=== PATIENT | female | born 1950 | race Caucasian/White ===

== ENCOUNTER 2016-10-30 12:00 | Inpatient (IN) | payer OTHER ==
[~2016-10-30] VITALS: Wt 73.0 kg
--- NOTE | 2016-10-30 15:11 | ERA ---
ER Documentation Chief Complaint Date/Time DATE: 10/30/16 TIME: 15:11 Chief Complaint CHEST PAIN HPI The patient is a 66-year-old female, presenting to the ER because of left-sided chest pain intermittently for the last 3 days, radiating down to the right arm today. She was seen at the clinic was sent her to the ER. She saw a pretzel cooker a few months ago and had a positive treadmill test according to her. The chest pain is 5/10, no aggravating or relieving factor. She did take a baby aspirin 81 mg this morning. She denies fever, chills, neck pain, chest pain with exertion of vomiting or diaphoresis, abdominal pain, vomiting, dysuria , diarrhea. She does not smoke nor drink Past medical history: Hypertension, gout, dyslipidemia Past surgical history: Cholecystectomy ROS All systems reviewed and are negative except as per history of present illness. Medications Home Meds Reported Medications Pantoprazole* (Pantoprazole*) 40 Mg Tablet.dr, 40 MG PO AC BREAKFAST, TAB 10/30/16 Aspirin* (Aspirin* EC) 81 Mg Tablet.dr, 81 MG PO DAILY, TAB 10/30/16 Simvastatin* (Zocor*) 40 Mg Tablet, 40 MG PO QHS, #30 TAB 10/30/16 Atenolol* (Atenolol*) 25 Mg Tablet, 12.5 MG PO DAILY, #30 TAB 10/30/16 Allopurinol* (Allopurinol*) 300 Mg Tablet, 300 MG PO BID, TAB 10/30/16 Allergies Allergies: Coded Allergies: No Known Allergy (Unverified , 10/30/16) Physical Exam Vitals Vital Signs Date Time Temp Pulse Resp B/P Pulse Ox O2 Delivery O2 Flow Rate FiO2 10/30/16 16:31 66 17 167/64 100 Nasal Cannula 2.0 10/30/16 15:15 Nasal Cannula 2 10/30/16 12:11 97.7 70 20 145/90 99 Physical Exam Const: No acute distress. Head: Atraumatic. Eyes: Normal Conjunctiva. ENT: Normal External Ears, Nose and Mouth. Neck: Full range of motion. No meningismus. Resp: Clear to auscultation bilaterally. Cardio: Regular rate and rhythm. Abd: Soft, non distended, normal bowel sounds, non tender. Skin: No petechiae or rashes. Back: No midline or flank tenderness. Ext: No cyanosis, or edema. Neur: Awake and alert. No focal deficit Psych: Normal Mood and Affect. Result Diagram: 10/30/16 1540 10/30/16 1540 Results 24 hrs Laboratory Tests Test 10/30/16 15:40 White Blood Count 9.510^3/ul Red Blood Count 4.4310^6/ul Hemoglobin 12.7g/dl Hematocrit 38.1% Mean Corpuscular Volume 86.0fl Mean Corpuscular Hemoglobin 28.7pg Mean Corpuscular Hemoglobin Concent 33.3g/dl Red Cell Distribution Width 14.1% Platelet Count 89170^3/UL Mean Platelet Volume 9.7fl Neutrophils % 54.8% Lymphocytes % 35.3% Monocytes % 6.6% Eosinophils % 1.8% Basophils % 1.1% Nucleated Red Blood Cells % 0.0/100WBC Neutrophils # 5.210^3/ul Lymphocytes # 3.310^3/ul Monocytes # 0.610^3/ul Eosinophils # 0.210^3/ul Basophils # 0.110^3/ul Nucleated Red Blood Cells # 0.010^3/ul Prothrombin Time 13.0Sec Prothrombin Time Ratio 1.0 INR International Normalized Ratio 0.98 Activated Partial Thromboplast Time 28.0Sec Sodium Level 139mmol/L Potassium Level 4.6mmol/L Chloride Level 107mmol/L Carbon Dioxide Level 25mmol/L Anion Gap 12 Blood Urea Nitrogen 35mg/dl Creatinine 1.10mg/dl Glucose Level 95mg/dl Calcium Level 9.4mg/dl Troponin I < 0.012ng/ml Current Medications Medications (Trade) Dose Ordered Sig/Cole Route PRN Reason Start Time Stop Time Status Last Admin Dose Admin Aspirin (Aspirin) 243 mg ONCE STAT PO 10/30/16 15:17 10/30/16 15:19 DC 10/30/16 15:44 Nitroglycerin 1 inch 1 inch ONCE STAT TD 10/30/16 15:17 10/30/16 15:19 DC 10/30/16 15:44 Sodium Chloride (NS) 500 ml @ 500 mls/hr Q1H ONCE IV 10/30/16 17:00 10/30/16 17:59 Procedures/[place] [id number] Radiology Main Line: [phone] DIAGNOSTIC IMAGING REPORT Patient: NOREEN TORRES : 1950 Age: 66 Sex: F MR #: [id number] DOS: 10/30/16 1510 Ordering MD: EDITH HEDRICK MD Location: E/R Room/Bed: PROCEDURE: XR Chest. CLINICAL INDICATION: Chest pain TECHNIQUE: Chest AP portable. COMPARISON: No comparison available. FINDINGS: The mediastinal structures are unremarkable. The heart is normal in size and configuration. The pulmonary vascularity is normal. The lung moeller are unremarkable. No consolidation is identified. The pleural spaces are unremarkable. The axial skeleton is unremarkable. IMPRESSION: No active intrathoracic disease. RPTAT: HGDB .Arvind Ghosh MD, Date Time Electronically viewed and signed by .Arvind Ghosh MD, MD on 10/30/2016 15:38 .B/ CC: EDITH HEDRICK MD EKG: Read by emergency physician Rate/Rhythm: Normal Sinus Rhythm 70 beats/min QRS, ST, T-waves: No ST elevation, no T inversion, low voltage Impression: Abnormal EKG MEDICAL MAKING DECISION: The patient is a 66-year-old female with multiple cardiac risk factors, presenting with acute chest pain that is concerning for ACS and acute dehydration. She was treated with 3 baby aspirin and 1 inch of nitroglycerin ointment to the chest wall and normal saline 500 mL IV for acute dehydration with good response The differential diagnoses considered include but are not limited to acute coronary syndrome, acute myocardial infarction, pericarditis, pulmonary embolism , aortic dissection, pneumonia, pleural effusion, pneumothorax, GERD, chest wall pain. Departure Diagnosis: Primary Impression: Chest pain Additional Impression: Dehydration Condition: Stable Comments I discussed the findings with the patient. I discussed the patient with the on- call hospitalist Dr. Lima at 4:50 PM who was made aware of the lab, the treatment, the patient condition. The patient is admitted to telemetry EDITH HEDRICK MD Oct 30, 2016 15:11
[2016-10-30] MEDS ORDERED: ASPIRIN 81 MG TAB PO STA (15:17)
[2016-10-30] MEDS ORDERED: NITROGLYCERIN 2% 1 GM OINT PKT TD STA (15:17)
--- NOTE | 2016-10-30 15:39 | RADRPT ---
PROCEDURE: XR Chest. CLINICAL INDICATION: Chest pain TECHNIQUE: Chest AP portable. COMPARISON: No comparison available. FINDINGS: The mediastinal structures are unremarkable. The heart is normal in size and configuration. The pu lmonary vascularity is normal. The lung moeller are unremarkable. No consolidation is identified. The pleural spaces are unremarkable. The axial skeleton is unremarkable. IMPRESSION: No active intrathoracic disease. RPTAT: HGDB .Arvind Ghosh MD, MD Date Time Electronically viewed and signed by .Arvind Ghosh MD, on 10/30/2016 15:38 .B/
[2016-10-30 15:44] LABS: ADD SCAN DIFF NO
[2016-10-30 15:46] LABS: BASOPHIL # 0.1 10^3/ul (0.0-0.1); BASOPHILS % 1.1 % (0.0-2.0); EOSINOPHILS # 0.2 10^3/ul (0.0-0.5); EOSINOPHILS % 1.8 % (0.0-7.0); HEMATOCRIT 38.1 % (37.0-47.0); HEMOGLOBIN 12.7 g/dl (12.0-16.0); LYMPHOCYTES # 3.3 10^3/ul (0.8-2.9); LYMPHOCYTES % 35.3 % (15.0-51.0); MEAN CORPUSCULAR HEMOGLOBIN 28.7 pg (29.0-33.0); MEAN CORPUSCULAR HGB CONC 33.3 g/dl (32.0-37.0); MEAN PLATELET VOLUME 9.7 fl (7.4-10.4); MONOCYTE # 0.6 10^3/ul (0.3-0.9); MONOCYTES % 6.6 % (0.0-11.0); NEUTROPHIL # 5.2 10^3/ul (1.6-7.5); NEUTROPHILS % 54.8 % (39.0-77.0); PLATELET COUNT 250 10^3/UL (140-415); RED BLOOD COUNT 4.43 10^6/ul (4.20-5.40); RED CELL DISTRIBUTION WIDTH 14.1 % (11.5-14.5); WHITE BLOOD COUNT 9.5 10^3/ul (4.8-10.8)
[2016-10-30] MEDS ORDERED: ALLO300T2 PO (15:59)
[2016-10-30] MEDS ORDERED: ATEN-51 PO (16:00)
[2016-10-30] MEDS ORDERED: SIMV40TA2 PO (16:00)
[2016-10-30] MEDS ORDERED: ASPI-664 PO (16:01)
[2016-10-30 16:02] LABS: INR 0.98
[2016-10-30] MEDS ORDERED: PANT40TA4 PO (16:02)
[2016-10-30 16:04] LABS: ANION GAP 12 (8-16); BLOOD UREA NITROGEN 35 mg/dl (7-20); CALCIUM 9.4 mg/dl (8.4-10.2); CARBON DIOXIDE 25 mmol/L (21-31); CHLORIDE 107 mmol/L (97-110); GLUCOSE 95 mg/dl (70-220); POTASSIUM 4.6 mmol/L (3.5-5.1); SODIUM 139 mmol/L (135-144)
[2016-10-30 16:17] LABS: TROPONIN-I < 0.012 ng/ml (0.00-0.12)
[2016-10-30] MEDS ORDERED: SOD CHLORIDE 0.9% 500 ML IV ONE (17:00)
[2016-10-30] MEDS ORDERED: NITROGLYCERIN (SL) 0.4 MG TAB SL PRN (19:30)
[2016-10-30] MEDS ORDERED: MAGNESIUM HYDROXIDE 30ML CUP PO PRN (19:30)
[2016-10-30] MEDS ORDERED: ACETAMINOPHEN 325 MG TAB PO PRN (19:30)
[2016-10-30] MEDS ORDERED: ALBUTEROL/IPRATROPIUM (NEB) 3 ML AMP HHN PRN (19:30)
[2016-10-30] MEDS ORDERED: HYDROCODONE/APAP (5/325) TAB PO PRN (19:30)
[2016-10-30] MEDS ORDERED: DOCUSATE SODIUM 100 MG CAP PO PRN (19:30)
[2016-10-30] MEDS ORDERED: NACL 0.9% 3 ML SYG IV SCH (19:30)
[2016-10-30] MEDS ORDERED: LORAZEPAM 2 MG INJ IV PRN (19:30)
[2016-10-30] MEDS ORDERED: morphine 2 MG INJ IV PRN (19:30)
[2016-10-30] MEDS ORDERED: hydrALAzine 20 MG INJ IV PRN (19:30)
[2016-10-30] MEDS ORDERED: NA PHOSPHATE/BIPHOS 133 ML ENEMA PR PRN (19:30)
[2016-10-30] MEDS ORDERED: ONDANSETRON 4 MG INJ IV PRN (19:30)
[2016-10-30] MEDS ORDERED: NON-FORMULARY/PATIENT OWN MED (Simvastatin* (Zocor*) 40 MG) PO SCH (21:00)
[2016-10-30 22:10] LABS: CREATINE KINASE 94 IU/L (23-200)
[2016-10-30 22:12] VITALS: PULSE 70
[2016-10-30 22:21] LABS: CK-MB 1.71 ng/ml (0.0-2.4)
[2016-10-30 22:27] LABS: TROPONIN-I < 0.012 ng/ml (0.00-0.12)
[2016-10-30 22:30] VITALS: BP 157/78; RESP 20
[2016-10-30] MEDS: ATORVASTATIN 20 MG TAB PO SCH (23:27)
[2016-10-30] MEDS: SOD CHLORIDE 0.45% 1,000 ML IV SCH (23:27)
[2016-10-30] MEDS: HEPARIN 5,000 UNIT/0.5 ML VIAL SC SCH (23:28)
[2016-10-31] VITALS (12 sets, daily range): BP systolic 129–163; BP diastolic 69–92; PULSE 50–81; RESP 17–19
[2016-10-31 02:00] LABS: CREATINE KINASE 92 IU/L (23-200)
[2016-10-31 02:14] LABS: CK-MB 1.72 ng/ml (0.0-2.4)
[2016-10-31 02:33] LABS: TROPONIN-I < 0.012 ng/ml (0.00-0.12)
--- NOTE | 2016-10-31 03:34 | HP ---
DATE OF ADMISSION: 10/30/2016 CHIEF COMPLAINT: Chest pain. HISTORY OF PRESENT ILLNESS: The patient is a 66-year-old female with history of hypertension. The patient states that she has had chest pain since March of last year. Initially PCP thought it wa s just skeletal pain or nerve pain. The patient ultimately was referred to volunteer specialist. Outpatien t stress test was done that was positive. The patient does not recall the name of the volunteer specialist, and she said that she only saw him one time. The patient was to obtain a heart catheterization, an d the volunteer specialist was waiting for insurance approval. The patient states that chest pain had been worse for the last 3 days. The pain is intermittent and does radiate down the right arm. She was s een in a clinic and was sent to the ED. The patient denies any aggravating or relieving factors. S he did take a baby aspirin early in the morning. She denies any shortness of breath, any fevers, ch ills, nausea, or vomiting. PAST MEDICAL HISTORY: Hypertension, gout, dyslipidemia. PAST SURGICAL HISTORY: Cholecystectomy. HOME MEDICATIONS: 1. Protonix. 2. Aspirin. 3. Simvastatin. 4. Atenolol. 5. Allopurinol. ALLERGIES: NO KNOWN DRUG ALLERGIES. FAMILY HISTORY: Noncontributory. SOCIAL HISTORY: Denies any alcohol, tobacco or drugs. REVIEW OF SYSTEMS: A 12-point review of systems negative except as stated in HPI. PHYSICAL EXAMINATION: VITAL SIGNS: Temperature is 97.4, pulse 68, respiratory rate 20, blood pressure 157/78, saturation 95% on 2 liters. GENERAL: No acute distress, alert and oriented. HEENT: Normocephalic, atraumatic. LUNGS: Clear to auscultation. CARDIOVASCULAR: Regular rate and rhythm. ABDOMEN: Nondistended, nontender, soft. EXTREMITIES: No clubbing, cyanosis, or edema. LABORATORIES: CBC within normal limits. Chemistry within normal limits except for creatinine 1.10. Troponins so far are negative. INR is 0.98. DIAGNOSTICS: Chest x-ray shows no active intrathoracic disease. EKG shows normal sinus rhythm, no ST elevations or evidence of ischemia. ASSESSMENT AND PLAN: 1. Chronic chest pain. The patient has been having chest pain for over 6 months now. She states t hat the pain has been worse over the past 3 days. She reportedly has a positive stress test but ellis s not recall the name of the volunteer specialist and states that she is waiting for her insurance to approv e heart catheterization. The patient's troponins so far are negative. EKG is negative. We will ob tain a cardiology consultation for further input. 2. Acute kidney injury versus CKD. The patient's baseline creatinine is not known. Creatinine is only mildly elevated at this time. We will monitor. 3. Hypertension. Continue home medications. 4. Gout. Continue home allopurinol. 5. Dyslipidemia. Continue statin. 6. Prophylaxis. Heparin. Dictated By: EDWIGE YANEZ MD BS/NTS Conf#: [id number] DID#: [id number]
[2016-10-31] MEDS: PANTOPRAZOLE (EC) 40 MG TAB PO SCH (06:07)
[2016-10-31 08:12] LABS: CHOL/HDL RATIO 4.7 RATIO
[2016-10-31 08:15] LABS: CREATINE KINASE 90 IU/L (23-200)
[2016-10-31 08:18] LABS: CK-MB 1.51 ng/ml (0.0-2.4)
[2016-10-31 08:23] LABS: TROPONIN-I < 0.012 ng/ml (0.00-0.12)
[2016-10-31 08:35] LABS: THYROID STIMULATING HORMONE 4.35 MIU/L (0.465-4.680)
[2016-10-31] MEDS ORDERED: ASPIRIN (EC) 81 MG TAB PO SCH (09:00)
[2016-10-31 09:39] LABS: ADD SCAN DIFF NO
[2016-10-31 09:56] LABS: CALCIUM 9.4 mg/dl (8.4-10.2); CREATININE 0.91 mg/dl (0.44-1.00); MAGNESIUM 1.8 mg/dl (1.7-2.5); PHOSPHORUS 3.8 mg/dl (2.5-4.9); POTASSIUM 4.5 mmol/L (3.5-5.1)
[2016-10-31] MEDS: ASPIRIN (EC) 325 MG TAB PO SCH (10:03)
[2016-10-31] MEDS: ATENOLOL 25 MG TAB PO SCH (10:03)
[2016-10-31] MEDS: HEPARIN 5,000 UNIT/0.5 ML VIAL SC SCH ×2 (10:05→20:33)
[2016-10-31 10:40] LABS: BASOPHIL # 0.1 10^3/ul (0.0-0.1); BASOPHILS % 1.2 % (0.0-2.0); EOSINOPHILS # 0.2 10^3/ul (0.0-0.5); EOSINOPHILS % 2.4 % (0.0-7.0); HEMATOCRIT 37.8 % (37.0-47.0); HEMOGLOBIN 12.7 g/dl (12.0-16.0); LYMPHOCYTES # 2.2 10^3/ul (0.8-2.9); LYMPHOCYTES % 27.8 % (15.0-51.0); MEAN CORPUSCULAR HEMOGLOBIN 28.9 pg (29.0-33.0); MEAN CORPUSCULAR HGB CONC 33.6 g/dl (32.0-37.0); MEAN CORPUSCULAR VOLUME 85.9 fl (82.0-101.0); MEAN PLATELET VOLUME 10.5 fl (7.4-10.4); MONOCYTE # 0.6 10^3/ul (0.3-0.9); MONOCYTES % 7.1 % (0.0-11.0); NEUTROPHIL # 4.8 10^3/ul (1.6-7.5); NEUTROPHILS % 61.1 % (39.0-77.0); PLATELET COUNT 232 10^3/UL (140-415); RED CELL DISTRIBUTION WIDTH 14.3 % (11.5-14.5); WHITE BLOOD COUNT 7.8 10^3/ul (4.8-10.8)
[2016-10-31] MEDS: SOD CHLORIDE 0.45% 1,000 ML IV SCH (12:32)
--- NOTE | 2016-10-31 14:35 | PN ---
DATE: 10/31/2016 SUBJECTIVE: The patient denies any chest pain. OBJECTIVE VITAL SIGNS: Stable. GENERAL: The patient is lying in bed, answering questions appropriately. No acute distress. HEENT: Pupils equal, round, react to light. Extraocular muscles intact. NECK: Supple, no thyromegaly. LUNGS: Clear to auscultation bilaterally. CARDIOVASCULAR: S1, S2 heard. No rubs or gallops. ABDOMEN: Soft, nontender, nondistended. Normal bowel sounds. No rebound or guarding. MUSCULOSKELETAL: No lower extremity edema bilaterally. NEUROLOGIC: No focal deficits. LABORATORY DATA: Troponins are negative x4. CBC is normal. Basic metabolic panel is normal. ASSESSMENT AND PLAN: A 66-year-old female with chest pain, rule out acute coronary syndrome. 1. Chest pain. She has ruled out for acute coronary syndrome, she has seen Dr. Prajapati in the p ast. Will get a consult in the past. We will get a consult with him. Follow up echocardiogram rep ort results. P.r.n. pain medicines. 2. Acute kidney injury. Creatinine appears to be improved. Continue to monitor for now. 3. Essential hypertension. Blood pressure stable. Continue current medicines. 4. Gout. Continue allopurinol. 5. High cholesterol. Continue statin. 6. Deep venous thrombosis prophylaxis, heparin. Dictated By: FAUSTO MERCADO Conf#: [id number] DID#: [id number]
--- NOTE | 2016-10-31 18:33 | RADRPT ---
Echocardiogram Report Patient Name: NOREEN TORRES Gender: Female Date: 1950 Study Date: 31-Oct-2016 [employer]eman [employer] Or Work Dispatcher: Chico Childers [facility] Location: [facility] Ref. Physician: FAUSTO CRUZ Quality: Adequate Procedures: Transthoracic echocardiogram with complete 2D, M-Mode, and doppler examination. Indications: Chest Pain. 2D/M Mode Doppler Measurement Value Normal Ranges Measurement Value Normal Ranges LVIDd 2D 4.9 3.5 - 5.6 cm AV Peak Bubba 1.4 m/sec LVIDs 2D 3.4 2.1 - 4.1 cm AV Peak PG 8.0 mmHg FS 2D 30.5 % LVOT Peak Bubba 0.8 m/sec LVPWd 2D 0.9 0.6 - 1.1 cm LVOT Peak PG 2.0 mmHg IVSd 2D 1.0 0.6 - 1.1 cm MV E Peak Bubba 0.5 m/sec IVS/LVPW 2D 1.1 MV A Peak Bubba 0.9 m/sec AoR Diam 2D 2.7 2.0 - 3.7 cm MV E/A 0.6 LA/Ao 2D 1 0 - 1 MV Decel Time 229 msec EDV 2D 121.0 cm3 MV E/A 0.6 ESV 2D 40.7 cm3 TR Peak Bubba 2.2 m/sec LA Dimen 2D 2.7 2.3 - 4.0 cm TR Peak PG 19.0 mmHg RVSP 22.0 mmHg Findings Left Ventricle: Normal left ventricular cavity size. Normal left ventricular wall thickness. Moderate global left ventricular systolic dysfunction. Ejection fraction is visually estimated at 4045 %. Abnormal Diastolic Function. Right Ventricle: Normal right ventricular size. Normal right ventricular systolic function. Left Atrium: The left atrium is normal in size. Right Atrium: The right atrium is normal in size. Mitral Valve: Mitral valve leaflets appear mildly thickened. Mild mitral annular calcification. Trace mitral regurgitation. Aortic Valve: Normal appearance of the aortic valve. No significant aortic stenosis or insufficiency. Tricuspid Valve: Normal appearance of the tricuspid valve. Estimated peak PA systolic pressure 22 mmHg. There is trace tricuspid regurgitation. Pulmonic Valve: Normal pulmonic valve appearance. There is trace pulmonic regurgitation. Pericardium: Normal pericardium with no significant pericardial effusion. Aorta: Normal aortic root. IVC: Normal size and normal respiratory collapse consistent with normal right atrial pressure. Conclusions 1.The left ventricle is normal in size with moderately reduced systolic function. 2.There is global left ventricular hypokinesis. 3.Estimated left ventricular ejection fraction of 40-45%. Electronically Signed By: Paulie Boles 31-Oct-2016 18:32:52 -0700 Patient Name: NOREEN TORRES Study Date: 31-Oct-2016 [id number]
[2016-10-31] MEDS: ATORVASTATIN 20 MG TAB PO SCH (20:31)
--- NOTE | 2016-10-31 20:36 | CONS ---
Date/Time of Note Date/Time of Note DATE: 10/31/16 TIME: 20:33 Assessment/Plan Assessment/Plan Chief Complaint/Hosp Course palpitations and shortness of breath Problems: Additional Assessment/Plan Will need an outpt PVC ablation Joaquin barroso does not have the equipment for the ablation If she becomes more symptomatic, I would recommend for her to get transferred to [facility], in [place]. Consultation Date/Type/Reason Admit Date/Time Oct 30, 2016 at 17:00 Hx of Present Illness This is a 66 y/o female whom I have known from my office, presented to the hosptial with symptoms of chest pain She recently had an echo an stress test with no ischmic changes Had a holter -- 18% PVCs She was recommended to have a PVC ablation. she is awaiting for authorizations Social History Smoking Status: Never smoker Exam/Review of Systems Vital Signs Vitals Vital Signs Date Time Temp Pulse Resp B/P Pulse Ox O2 Delivery O2 Flow Rate FiO2 10/31/16 20:06 73 10/31/16 20:04 97.8 19 150/73 96 10/30/16 21:50 Nasal Cannula 2.0 Intake and Output 10/30/16 10/30/16 10/31/16 15:00 23:00 07:00 Intake Total 50 ml Output Total 2 ml Balance 48 ml Results Result Diagram: 10/31/16 0650 10/31/16 0650 Results 24 hrs Laboratory Tests Test 10/30/16 21:23 10/31/16 01:13 10/31/16 06:50 Creatine Kinase 94 92 90 Creatine Kinase Index 1.8 1.9 1.7 Creatinine Kinase MB (Mass) 1.71 1.72 1.51 Troponin I < 0.012 < 0.012 < 0.012 Free Thyroxine 1.05 White Blood Count 7.8 Red Blood Count 4.40 Hemoglobin 12.7 Hematocrit 37.8 Mean Corpuscular Volume 85.9 Mean Corpuscular Hemoglobin 28.9 L Mean Corpuscular Hemoglobin Concent 33.6 Red Cell Distribution Width 14.3 Platelet Count 232 Mean Platelet Volume 10.5 H Neutrophils % 61.1 Lymphocytes % 27.8 Monocytes % 7.1 Eosinophils % 2.4 Basophils % 1.2 Nucleated Red Blood Cells % 0.0 Neutrophils # 4.8 Lymphocytes # 2.2 Monocytes # 0.6 Eosinophils # 0.2 Basophils # 0.1 Nucleated Red Blood Cells # 0.0 Sodium Level 140 Potassium Level 4.5 Chloride Level 108 Carbon Dioxide Level 22 Anion Gap 15 Blood Urea Nitrogen 24 #H Creatinine 0.91 Glucose Level 88 Hemoglobin A1c 5.9 Calcium Level 9.4 Phosphorus Level 3.8 Magnesium Level 1.8 Triglycerides Level 199 H Cholesterol Level 189 LDL Cholesterol, Calculated 109 HDL Cholesterol 40 Cholesterol/HDL Ratio 4.7 Thyroid Stimulating Hormone (TSH) 4.350 Medications Medications Current Medications Ondansetron HCl (Zofran Inj) 4 mg Q6H PRN IV NAUSEA AND/OR VOMITING; Start at 19:30 Acetaminophen (Tylenol Tab) 650 mg Q6H PRN PO PAIN LEVEL 1-3 OR FEVER; Start at 19:30 Acetaminophen/ Hydrocodone Bitart ([place] (5/325)) 1 tab Q6H PRN PO MODERATE PAIN LEVEL 4-6; Start 10/30/16 at 19:30 Morphine Sulfate (morphine) 2 mg Q4H PRN IV SEVERE PAIN LEVEL 7-10; Start 10/30 at 19:30 Docusate Sodium (Colace) 100 mg Q12H PRN PO CONSTIPATION; Start 10/30/16 at 19: 30 Magnesium Hydroxide (Milk Of Mag) 30 ml DAILY PRN PO CONSTIPATION; Start at 19:30 Sodium Biphosphate/ Sodium Phosphate (Fleet Enema) 133 ml DAILY PRN DC CONSTIPATION; Start 10/30/16 at 19:30 Heparin Sodium (Porcine) 5000 unit 5,000 unit Q12 SC Last administered on 10:05; Admin Dose 5,000 UNIT; Start 10/30/16 at 21:00 Sodium Chloride (1/2 NS) 1,000 ml @ 75 mls/hr [id number] IV Last administered on 10/31/16 12:32; Admin Dose 75 MLS/HR; Start 10/30/16 at 19:13 Lorazepam (Ativan) 0.5 mg Q6H PRN IV ANXIETY; Start 10/30/16 at 19:30 Hydralazine HCl (Apresoline) 10 mg Q6H PRN IV ELEVATED BLOOD PRESSURE; Start at 19:30 Clonidine (Catapres) 0.1 mg Q6H PRN PO ELEVATED BLOOD PRESSURE; Start 10/30/16 at 19:30 Nitroglycerin (Nitroglycerin (Sl Tab) 0.4 Mg) 1 tab Q5M PRN SL ANGINA; Start at 19:30 Aspirin (Ecotrin) 325 mg DAILY PO Last administered on 10/31/16 10:03; Admin Dose 325 MG; Start 10/31/16 at 09:00 Atenolol (Tenormin) 12.5 mg DAILY PO Last administered on 10/31/16 10:03; Admin Dose 12.5 MG; Start 10/31/16 at 09:00 Atorvastatin Calcium (Lipitor) 20 mg DAILY@21 PO Last administered on 23:27; Admin Dose 20 MG; Start 10/30/16 at 21:00 ELDA CROWELL MD Oct 31, 2016 20:36
[2016-11-01] VITALS (7 sets, daily range): BP systolic 125–145; BP diastolic 58–82; PULSE 62–69; RESP 17–19
[2016-11-01] MEDS: SOD CHLORIDE 0.45% 1,000 ML IV SCH ×2 (00:45→08:31)
[2016-11-01] MEDS: PANTOPRAZOLE (EC) 40 MG TAB PO SCH (06:43)
[2016-11-01] MEDS: ASPIRIN (EC) 325 MG TAB PO SCH (08:30)
[2016-11-01] MEDS: ATENOLOL 25 MG TAB PO SCH (08:31)
[2016-11-01] MEDS: HEPARIN 5,000 UNIT/0.5 ML VIAL SC SCH (08:37)
[2016-11-01 10:16] LABS: ADD SCAN DIFF NO
[2016-11-01 10:25] LABS: BASOPHIL # 0.1 10^3/ul (0.0-0.1); BASOPHILS % 0.9 % (0.0-2.0); EOSINOPHILS # 0.2 10^3/ul (0.0-0.5); EOSINOPHILS % 2.4 % (0.0-7.0); HEMATOCRIT 39.2 % (37.0-47.0); HEMOGLOBIN 13.3 g/dl (12.0-16.0); LYMPHOCYTES # 2.3 10^3/ul (0.8-2.9); LYMPHOCYTES % 26.5 % (15.0-51.0); MEAN CORPUSCULAR HEMOGLOBIN 28.9 pg (29.0-33.0); MEAN CORPUSCULAR HGB CONC 33.9 g/dl (32.0-37.0); MEAN PLATELET VOLUME 9.9 fl (7.4-10.4); MONOCYTE # 0.6 10^3/ul (0.3-0.9); MONOCYTES % 6.9 % (0.0-11.0); NEUTROPHIL # 5.4 10^3/ul (1.6-7.5); NEUTROPHILS % 62.8 % (39.0-77.0); PLATELET COUNT 246 10^3/UL (140-415); RED BLOOD COUNT 4.61 10^6/ul (4.20-5.40); WHITE BLOOD COUNT 8.6 10^3/ul (4.8-10.8)
[2016-11-01 11:07] LABS: CREATININE 0.98 mg/dl (0.44-1.00); POTASSIUM 4.4 mmol/L (3.5-5.1)
--- NOTE | 2016-11-01 12:28 | PDOCDIS ---
Discharge Instructions CONDITION Patient Condition: Stable HOME CARE INSTRUCTIONS: Diet Instructions: Low Fat /Cholesterol ACTIVITY: Activity Restrictions: Slowly Increase Activity FOLLOW UP/APPOINTMENTS Appointments Please take your medications, and see your doctor in the clinic in 1 week. FAUSTO CRUZ. Nov 01, 2016 12:28
--- NOTE | 2016-11-01 12:54 | DS ---
DATE OF ADMISSION: 10/30/2016 DATE OF DISCHARGE: 11/01/2016 HOSPITAL COURSE: This is a 66-year-old female originally admitted on 10/31/2016, being discharged h ome on 11/01/2016. The patient came in with chest pain symptoms. She was admitted to telemetry darrell or. She was ruled out for acute coronary syndrome. She was evaluated by her clinic soil science professor, Lidia Prajapati who stated that the patient would need an outpatient PVC ablation. The patient's ches t pain symptoms improved. Again, she ruled out for acute coronary syndrome. Her echocardiogram naveen wed ejection fraction of 40 to 45%. There was global left ventricular hypokinesis but the left vent ricle was normal in size with moderately reduced systolic function noted. MEDICATIONS: The patient is clinically improved, she will be discharged home today in [facility]. DISCHARGE MEDICATIONS: She will be sent with the following medications: 1. Allopurinol 300 mg b.i.d. 2. Aspirin 81 mg daily. 3. Atenolol 12.5 mg daily. 4. Protonix 40 mg every morning. 5. Simvastatin 40 mg at bedtime. FOLLOWUPS: She will need to follow up with Dr. Prajapati in the cardiology clinic primary care doc tor in the clinic in the next 1 to 2 weeks for possible outpatient PVC ablation. FINAL DIAGNOSES: 1. Chest pain, ruled out for acute coronary syndrome. 2. Acute kidney injury, resolved. 3. Gout. 4. Essential hypertension. 5. High cholesterol. 6. History of cardiomyopathy with ejection fraction of 40% to 45% with some reduced systolic functi on. See echocardiogram results. Time spent discharging patient 45 minutes. Dictated By: FAUSTO MERCADO Conf#: [id number] DID#: [id number]
== END 2016-11-01 15:30 | disposition home or self-care (01) | DRG 313 ==
LOC: E/R 12:00 → TEL 17:00
PROVIDERS: ADMIT Hospitalist; ATTEND Hospitalist
DX: R07.9 Chest pain, unspecified (principal); N17.9 Acute kidney failure, unspecified; N18.9 Chronic kidney disease, unspecified; I12.9 Hypertensive chronic kidney disease with stage 1 through stage 4 chronic kidney disease, or unspecified chronic kidney disease; R00.2 Palpitations; M10.9 Gout, unspecified; E86.0 Dehydration
CPT/HCPCS: 36415; 71010; 80048; 80061; 82550; 82553; 82962; 83036; 83735; 84100; 84439; 84443; 84484; 85025; 85610; 85730; 93005; 93306; J1644; J7040

== ENCOUNTER 2017-01-30 14:08 | Day surgery (SDC) | payer MEDICARE, MEDICAID ==
[~2017-01-30] VITALS: Ht 157.5 cm; Wt 71.0 kg
[~2017-01-30 14:08] MED LIST: ALLO300T2 PO; ASPI-664 PO; ATEN-51 PO; LACTATED RINGER'S 1,000 ML IV* SCH; PANT40TA4 PO; SIMV40TA2 PO
[2017-01-30 14:32] VITALS: BP 198/94; PULSE 60; RESP 19
[2017-01-30] MEDS ORDERED: AMIO200T2 PO (14:50)
[2017-01-30] MEDS ORDERED: IND50 PO (14:51)
[2017-01-30 15:24] VITALS: Ht 157.5 cm; Wt 71.0 kg
[2017-01-30 15:25] VITALS: BP 164/88; PULSE 60
== END 2017-01-30 16:50 | disposition home or self-care (01) ==
LOC: SDS 14:08
PROVIDERS: ATTEND Orthopaedic Surgery Hand Surgery
DX: R22.31 Localized swelling, mass and lump, right upper limb (principal); Z53.9 Procedure and treatment not carried out, unspecified reason

== ENCOUNTER 2017-02-07 15:09 | Day surgery (SDC) | payer MEDICARE, OTHER ==
[2017-02-07] VITALS (7 sets, daily range): BP systolic 128–146; BP diastolic 67–78; PULSE 54–65; RESP 12–18; Ht 156.2 cm; Wt 70.3 kg
[~2017-02-07] VITALS: Ht 156.2 cm; Wt 70.3 kg
[~2017-02-07 15:09] MED LIST changes: +ACETAMINOPHEN 1000 MG/100 ML IVPB ONE; +AMIO200T2 PO; +CEFAZOLIN 1 GM INJ ONE; +IND50 PO; -LACTATED RINGER'S 1,000 ML IV* SCH
--- NOTE | 2017-02-07 15:23 | HPN ---
Date/Time of Note Date/Time of Note DATE: 02/07/17 TIME: 15:23 Interval H&P Admission Note Pt. seen H&P reviewed: No system changes PRETTY MURRAY Feb 07, 2017 15:23
[2017-02-07] MEDS ORDERED: BUPIVACAINE 0.25% (MPF) 10 ML 10 ML VIAL ONE (16:18)
[2017-02-07] MEDS ORDERED: POLYMYXIN/BACITRACIN 1L IRRIG ONE (16:18)
[2017-02-07] MEDS ORDERED: LIDOCAINE 1% (STERILE-PAK) 30 ML INJ ONE (16:18)
[2017-02-07] MEDS ORDERED: PROPOFOL 20 ML ONE (16:33)
[2017-02-07] MEDS ORDERED: FENTAnyl 50 MCG/ML VIAL ONE (16:34)
[2017-02-07] MEDS ORDERED: MIDAZOLAM 1 MG/ML 2 ML INJ ONE (16:34)
[2017-02-07] MEDS ORDERED: KETOROLAC 30 MG INJ ONE (16:37)
[2017-02-07] MEDS ORDERED: ONDANSETRON 4 MG INJ ONE (16:49)
--- NOTE | 2017-02-07 17:58 | OPPN ---
Date/Time of Note Date/Time of Note DATE: 02/07/17 TIME: 17:57 Operative Report Preoperative Diagnosis right thumb mass Postoperative Diagnosis right thumb mass Operation/Procedure Performed excision right thumb mass Surgeon see signature line director of assisted living none Anesthesia: MAC, other Estimated blood loss: 0 - 10 ml's Transfusion Required none Specimen right thumb mass Grafts/Implants none Complications none PRETTY MURRAY Feb 07, 2017 17:58
--- NOTE | 2017-02-07 18:47 | OPR ---
DATE OF OPERATION: 02/07/2017 SURGEON: Aydin Harris MD. ANESTHESIA: Anesthesia is local MAC. PREOPERATIVE DIAGNOSIS: Right thumb mass, 2 cm x 3 cm. POSTOPERATIVE DIAGNOSIS: Right thumb mass, 2 cm x 3 cm, likely pyogenic granuloma. PROCEDURE: Excision of superficial mass right thumb, measuring 2 cm x 3 cm. OPERATIVE FINDINGS: Large friable vascular mass at the right lung with small subcentimeter stalk, superficial in nature. INDICATION: The patient is a 67-year-old female with longstanding right thumb mass. It was quite large in clinic, and due to its size, I thought it was best to proceed with operative intervention, although the mass did appear to be a pyogenic granuloma. At the time of surgery, the patient's mass had increased in size to 2 cm x 3 cm, and we again discussed the options. The patient elected to proceed with surgical excision, understanding the risks and benefits. DESCRIPTION OF PROCEDURE: The patient was seen in the preoperative area. All further questions were answered. Again, she gave informed consent, understanding the risks and benefits. She was taken to the operative suite, and placed in supine position. Ancef 2 grams IV was given and tourniquet placed on right upper extremity. The right upper extremity was prepped with ChloraPrep stick and draped in usual sterile fashion. Esmarch bandage was used to exsanguinate the extremity and tourniquet inflated at 250 mmHg. The large mass over the dorsum of the right thumb was visualized down to its stalk and a 15 blade was used to take a small cuff of skin around the mass through skin and subcutaneous tissue. With a 1 mm cuff of skin circumferentially, the mass was excised, and there was no penetration that was visible going deep below the subcutaneous tissue. The area was cauterized with Bovie electrocautery, and the mass was sent off for specimen. No sutures were placed. The wound was irrigated, and Xeroform placed on the wound followed by sterile gauze and Coban dressing. Tourniquet was deflated after 4 minutes. The patient was awakened from anesthesia. She was taken to the postoperative suite in stable condition and tolerated the procedure well without complication. The thumb was pink, warm, and well perfused after tourniquet was deflated. SPECIMENS: Right thumb mass, measuring 2 cm x 3 cm. ESTIMATED BLOOD LOSS: Five mL. SPONGE, INSTRUMENT, NEEDLE COUNTS: Correct. TOURNIQUET TIME: Four minutes. CONDITION ON DISCHARGE: Stable. Dictated By: Aydin Harris MD /alex/howard /Document#: [id number]
== END 2017-02-07 18:33 | disposition home or self-care (01) ==
LOC: SDS 15:09
PROVIDERS: ATTEND Orthopaedic Surgery Hand Surgery
DX: L98.0 Pyogenic granuloma (principal); I10 Essential (primary) hypertension; I25.10 Atherosclerotic heart disease of native coronary artery without angina pectoris; Z88.6 Allergy status to analgesic agent
CPT/HCPCS: 11423; 88307; J0131; J0690; J2250; J2405; J3010; J1885

== ENCOUNTER 2017-12-17 15:59 | Emergency (ER) | END 2017-12-17 17:52 | disposition home or self-care (01) ==